=== PATIENT | female | born 1940 | race Caucasian/White ===

== ENCOUNTER → 2017-11-29 | Outpatient (CLI) | payer MEDICARE ==
--- NOTE | 2017-11-29 09:00 | CT ---
EXAMINATION TYPE: CT chest w con DATE OF EXAM: 11/29/2017 COMPARISON: NONE HISTORY: Lung mass CT DLP: 277 mGycm. Automated Exposure Control for Dose Reduction was Utilized. TECHNIQUE: CT scan of the thorax is performed following with IV Contrast, patient injected with 100 mL of Isovue 300. FINDINGS: LUNGS: There is mild biapical pleural/parenchymal scarring. There is elevated right hemidiaphragm wit h right basilar linear scarring and/or atelectasis. There is patchy left basilar linear scarring and/ or atelectasis. No suspicious parenchymal nodule or mass is identified. No pleural effusion or pneumo thorax is seen bilaterally. Tracheobronchial tree is patent. MEDIASTINUM: There are prominent but predominantly subcentimeter lymph nodes throughout the thorax, f or reference pericarinal lymph node measures 1.0 x 0.7 cm axial image 23 and AP window lymph node rodriguez sures 1.1 x 0.8 cm same image. Slightly enlarged right hilar lymph node measures 1.5 x 1.1 cm on axia l image 27 corresponding to coronal image 37. No cardiomegaly or pericardial effusion is seen. Coron katty artery calcification is present which is noted marker for coronary artery disease fairly prominen t in the proximal LAD. There is mild to moderate mixed plaque in the descending aorta. There is subcentimeter low dense left thyroid nodule coronal image 24 adjacent to small calcific focu s or nodule. OTHER: Some scattered dystrophic calcifications in both breasts are present, left more numerous than right. There is moderate multilevel spurring in the thoracic spine. Liver is diffusely low dense cons istent with fatty infiltration relative to spleen. Slight thickening to both adrenal glands, left gre ater than right favors benign hyperplasia. There is prominent calcified plaque at origin of left noemi l artery. . IMPRESSION: 1. Slightly enlarged right hilar lymph node. No suspicious parenchymal nodule or masses. 2. Incidental findings as noted above include left thyroid nodule and prominent calcified plaque at o rigin of left renal artery that may warrant further clinical workup.
== END | disposition home or self-care (01) ==
LOC: RADCTMAIN 07:20
PROVIDERS: ATTEND Family Medicine
DX: R59.0 Localized enlarged lymph nodes (principal)
CPT/HCPCS: 71260; Q9967